=== PATIENT | female | born 1965 | race Caucasian/White ===

== ENCOUNTER 2018-08-05 08:59 | Day surgery (SDC) | payer OTHER ==
[2018-07-30 13:36] LABS: Absolute Lymphocytes (CBC) 1.6 K/uL (0.7-4.9); Absolute Monocytes 0.4 K/uL (0.1-1.3); Absolute Neutrophil 3.4 K/uL (1.8-8.0); Basophils % 0.7 % (0-1.3); Eosinophils % 1.1 % (0-4.4); Lymphocytes % 28.6 % (15.3-44.8); MCH 23.1 pg (27.0-35.0); MCV 69.8 fL (80-100); MPV 7.8 fL (7.6-11.3); Monocytes % 7.4 % (3.3-12.3); RBC Red Blood Cell Count 4.15 M/uL (3.86-4.86)
[2018-07-30 13:54] LABS: Urine White Blood Cell Casts OK
[2018-07-30 13:55] LABS: Platelet Estimate INCR
[2018-07-30 13:56] LABS: Blood Morphology Comment NOT SEEN (NOT SEEN)
--- OUTSIDE RECORDS SUMMARY | 2018-08-05 09:02 | XMS REPORT | Continuity of Care Document ---
:1965 Author Organization Interface Problems Problem Status Onset Classification Date Comments Source Date Reported Generalized 01/04/2018 [facility] abdominal pain 8 Syncope 01/04/2018 [facility] 8 FAINTING, Active [facility] DIZZINESS 8 Ronald Syncope and 01/04/2018 [facility] collapse Medications Medication Details Route Status Patient Ordering Order Source Instructions Provider Date Dexamethasone 12 mg, 3 mL, Inactive Route: IVP, 2017 [place] Drug form: INJ, ONCE, Dosing Weight 55, kg, Priority: STAT, Start date: 09/27/17 20:06:00 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, Stop date: 09/27/17 20:06:00 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 Diphenhydramine 25 mg, 0.5 Inactive mL, Route: 2017 [place] IVP, Drug form: INJ, ONCE, Dosing Weight 55, kg, Priority: STAT, Start date: 09/27/17 20:06:00 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, Stop date: 09/27/17 20:06:00 CSTNotes: (Same as: Benadryl) Zofran 4 mg, 2 mL, Inactive Route: IVP, 2017 [place] Drug form: INJ, ONCE, Dosing Weight 55, kg, Priority: STAT, Start date: 09/27/17 19:52:00 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, Stop date: 09/27/17 19:52:00 CSTNotes: (Same as: Zofran) MEDICATION WASTE Product Size: 4 mg Product Wasted: ___ mg Sodium Chloride 1,000 mL, Inactive 0.9% (Bolus) IV 1000 ml/hr, 2017 [place] Infuse Over: 1 hr, Route: IV, 1,000, Drug form: INJ, ONCE, Priority: STAT, Dosing Weight 55 kg, Start date: 09/27/17 16:18:00 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, Stop date: 09/27/17 16:18:00 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 Saline Flush 0.9% 10 mL, No Longer Route: IVP, Active 2017 [place] Drug Form: INJ, kg, PRN, PRN Line Flush, Start date: 09/27/17 16:15:00 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, Duration: 30 day, Stop date: 10/27/17 16:14:00 CSTNotes: (Same as: BD Posiflush) Allergies, Adverse Reactions, Alerts Substance Category Reaction Severity Reaction Status Date Comments Source type Reported iodine Assertion Drug Active allergy [place] Immunizations Immunization Date Given Site Status Last Updated Comments Source Results Order Name Results Value Reference Date Interpretation Comments Source Range BLOOD BANK ABO/Rh O NEG 09/27 RESULTS [place] BLOOD BANK Antibody Negative 09/27 RESULTS [facility] [place] (09/27/17 4:44 PM) CHEM PANEL Lipase Lvl 188 unit/L 73 - 393 09/27 [place] CHEM PANEL B/C Ratio 14 6 - 25 09/27 [place] CHEM PANEL Globulin 4.6 g/dL 2.7 - 4.2 09/27 [place] CHEM PANEL A/G Ratio 0.8 0.7 - 1.6 09/27 [place] CHEM PANEL AGAP 9.2 meq/L 10.0 - 09/27 [facility] 20.0 [place] CHEM PANEL eGFR 102 09/27 Result Comment: The eGFR is calculated using the CKD-EPI formula. In most young, healthy individuals the eGFR will be >90 mL/ min/1.73m2. The eGFR declines with age. An eGFR of 60-89 may be normal in mL/min/1.7 some populations, particularly the elderly, for whom the CKD-EPI formula has not been extensively validated. Use of the eGFR is not recommended in the following populations: [place] 3m2 Individuals with unstable creatinine concentrations, including patients and those with serious co-morbid conditions. Patients with extremes in muscle mass or diet. The data above are obtained from the National Kidney Disease Education Program (NKDEP) which additionally recommends that when the eGFR is used in patients with extremes of body mass index for purposes of drug dosing, the eGFR should be multiplied by the estimated BMI. CHEM PANEL Glucose Lvl 96 mg/dL 70 - 99 09/27 [place] CHEM PANEL CO2 34 meq/L 24 - 32 09/27 [place] CHEM PANEL Chloride Lvl 102 meq/L 95 - 109 09/27 [place] CHEM PANEL Potassium 3.2 meq/L 3.5 - 5.1 09/27 MH Lvl [place] CHEM PANEL Sodium Lvl 142 meq/L 135 - 145 09/27 [place] CHEM PANEL Creatinine 0.63 mg/dL 0.50 - 09/27 MH Lvl 1.40 [place] CHEM PANEL BUN 9 mg/dL 7 - 22 09/27 [place] CHEM PANEL Albumin Lvl 3.8 g/dL 3.5 - 5.0 09/27 [place] CHEM PANEL Total 8.4 g/dL 6.4 - 8.4 09/27 [place] CHEM PANEL Alk Phos 89 unit/L 39 - 136 09/27 [place] CHEM PANEL Calcium Lvl 8.7 mg/dL 8.5 - 10.5 09/27 [place] CHEM PANEL ALT 14 unit/L 0 - 65 09/27 [place] CHEM PANEL AST 10 unit/L 0 - 37 09/27 [place] CHEM PANEL Bili Total 0.3 mg/dL 0.2 - 1.3 09/27 [place] HEMATOLOGY Eosinophils 0.9 % 0.0 - 4.0 09/27 [place] HEMATOLOGY Lymphocytes 33.6 % 20.0 - 09/27 MH 40.0 [place] HEMATOLOGY Monocytes 5.7 % 2.0 - 12.0 09/27 [place] HEMATOLOGY Plt Morph Normal 09/27 [place] (09/27/17 4:44 PM) HEMATOLOGY Segs 59.2 % 45.0 - 09/27 MH 75.0 [place] HEMATOLOGY Basophils 0.6 % 0.0 - 1.0 09/27 [place] HEMATOLOGY Monocytes # 0.2 K/CMM 0.0 - 0.8 09/27 [place] HEMATOLOGY Segs-Bands # 2.5 K/CMM 1.5 - 8.1 09/27 [place] HEMATOLOGY Lymphocytes 1.4 K/CMM 1.0 - 5.5 09/27 MH [place] HEMATOLOGY Microcyte 3+ None Seen 09/27 [place] *NA* (09/27/17 4:44 PM) HEMATOLOGY Anisocyte 1+ None Seen 09/27 [place] *ABN* (09/27/17 4:44 PM) HEMATOLOGY MPV 7.2 fL 7.4 - 10.4 09/27 [place] HEMATOLOGY Platelet 287 K/CMM 133 - 450 09/27 [place] HEMATOLOGY RDW 15.9 % 11.5 - 09/27 MH 14.5 [place] HEMATOLOGY MCH 22.5 pg 27.0 - 09/27 MH 31.0 [place] HEMATOLOGY Hct 32.4 % 36.0 - 09/27 MH 48.0 [place] HEMATOLOGY MCV 68.7 fL 80.0 - 09/27 98.0 [place] HEMATOLOGY MCHC 32.7 g/dL 32.0 - 09/27 36.0 [place] HEMATOLOGY WBC 4.2 K/CMM 3.7 - 10.4 09/27 [place] HEMATOLOGY RBC 4.72 M/CMM 4.20 - 09/27 MH 5.40 /2017 [place] HEMATOLOGY Hgb 10.6 g/dL 12.0 - 09/27 16.0 [place] URINE AND UA 2.0 mg/dL 0.1 - 1.0 09/27 [facility] Urobilinogen /2017 [place] URINE AND UA Blood Negative Negative 09/27 [facility] [place] (09/27/17 4:31 PM) URINE AND UA Ketones Trace Negative 09/27 [facility] mg/dL mg/dL [place] URINE AND UA Bili Negative Negative 09/27 [facility] [place] *NA* (09/27/17 4:31 PM) URINE AND UA Glucose Negative Negative 09/27 [facility] mg/dL mg/dL [place] URINE AND UA WBC 1 /HPF 0 - 5 09/27 [facility] [place] URINE AND UA RBC 3 /HPF 0 - 2 09/27 [facility] [place] URINE AND UA Sq Epi Moderate Few /LPF 09/27 [facility] /LPF /2017 [place] URINE AND UA Leuk Est Negative Negative 09/27 [facility] [place] (09/27/17 4:31 PM) URINE AND UA Nitrite Negative Negative 09/27 [facility] [place] (09/27/17 4:31 PM) URINE AND UA Hyal Cast 3 /LPF 0 - 2 09/27 [facility] [place] URINE AND UA Bacteria Occasional None Seen 09/27 [facility] /HPF /HPF [place] URINE AND UA Mucus Many /LPF None Seen 09/27 [facility] /LPF [place] URINE AND UA pH 5.0 5.0 - 8.0 09/27 [facility] [place] URINE AND UA Protein Negative Negative 09/27 [facility] mg/dL mg/dL [place] URINE AND UA Spec Grav 1.024 <=1.030 09/27 [facility] [place] URINE AND UA Turbidity Slight Clear 09/27 [facility]OOL [place] *ABN* (09/27/17 4:31 PM) URINE AND UA Color Yellow Yellow 09/27 [facility]OOL [place] *NA* (09/27/17 4:31 PM) URINE CHEM U Preg Negative Negative 09/27 [place] (09/27/17 4:31 PM) ED ED CT SCAN OF THE ABDOMEN AND PELVIS WITH CONTRAST. 09/27 - [facility] Abdomen/Pel Abdomen/Pelv /2017 - [place] vis IV is IV HX: Clinical Indication: - abdominal pain, vomiting, weight loss, cre-0.63, gfr-102, qclx664/95cc, dlp-268.02mgy-cm; . contrast contrast only CT only CT Comparison: None Read by: Shan Ashley MD Dictated Date/time: 09/27/17 22:09 Electronically Signed by: Shan Ashley MD 09/27/17 22:13 FINAL REPORT Technique: Helical CT images were obtained from the domes the diaphragms to the symphysis pubis following the administration of intravenous and p.o. contrast. ABDOMEN AND PELVIS: The lung bases are clear. The heart is normal in size. Postoperative cholecystectomy. The liver, spleen, pancreas, and adrenals are normal in appearance. The kidneys show good, symmetrical, excretion without hydronephrosis. Postoperative LAP-BAND procedure is present. Abundance of stool within the colon. Mild sigmoid descending diverticulosis. Heterogeneous likely fibroid uterus. Fluid or thickened endometrium with submuco alpa fibroids and/or polyps. The bladder is nondistended. IMPRESSION: 1. No acute abdominal or pelvic process detected. 2. Postoperative cholecystectomy and LAP-BAND procedure are present. 3. Constipation. Mild sigmoid descending diverticulosis. 4. Heterogeneous likely fibroid uterus. Fluid or thickened endometrium with submucosal fibroids and/or polyps. SL: [id number] Pelvis Pelvis Patient Name: OLINDA SERRANO 09/27 - [facility] Transvag w Transvag - [place] Pelvis Pelvis : 1965; Age: 52 years Female Doppler US Doppler US MR: [id number] Read by: Dayo Gar MD Dictated Date/time: 09/27/17 19:30 Study: Pelvis Transvag w Pelvis Doppler US 09/27/2017 4:15 PM 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 Electronically Signed by: Dayo Gar MD 09/27/17 19 :33 FINAL REPORT CLINICAL INDICATION: - Vaginal bleeding/clotting. ADDITIONAL HISTORY: None COMPARISON: None TECHNIQUE: Grayscale, Doppler, and color sonographic evaluation of the pelvis was performed using standard technique. Both transabdominal and transvaginal technique were utilized. FINDINGS: Transabdominal: The uterus measures 10.2 x 5.7 x 6.4 cm and demonstrates normal echogenicity. Transvaginal: The endometrial stripe measures 1.6 cm. Hypoechoic 1.5 cm intramural fibroid within the anterior body. Hypoechoic 2.4 cm intramural fibroid within the posterior body. The right ovary measures 2.4 x 1 x 1.2 cm and the left ovary measures 2.7 x 2.1 x 2.4 cm. The ovaries demonstrate normal size and echogenicity. Doppler imaging demonstrates adequate flow to the ovaries. No evidence of free pelvic fluid. IMPRESSION: Thickened endometrial stripe (1.6 cm). If patient is postmenopausal, this may indicate endometrial hyperplasia, polyp, or possibly carcinoma. If patient is pre or perimenopausal, this may be related to secretory phase of menstruation. Two small uterine fibroids. SL: CHRISTIANO Chest 1view Chest 1view Clinical indication: - Weight loss//Feeling weak \T \ losing weight for 4 to 7 months. Was worked up for this last Apr in [place]. Lower abd pain off \T\ on x 1 month 09/27 - [facility] DX DX - [place] Comparison: None. Read by: Kiera Sanchez MD Dictated Date/time: 09/27/17 16:35 TECHNIQUE: AP chest Electronically Signed by: Kiera Sanchez MD 09/27/17 16:36 FINAL REPORT FINDINGS: Lines, tubes, and hardware: A lap band device is seen in the left upper quadrant. Lungs and pleura: The lungs are clear. No appreciable pleural effusion or pneumothorax. Heart and mediastinum: The cardiomediastinal silhouette is within normal limits. Bones: No acute bony abnormality is identified. IMPRESSION: No acute cardiopulmonary abnormality. SL: [id number] Vital Signs Vital Sign Value Date Comments Source Temperature Oral (F) 97.5 F 09/28/2017 [facility] Respitory Rate 18 09/28/2017 [facility] Heart Rate 85 09/28/2017 [facility] Systolic (mm Hg) 129 09/28/2017 [facility] Diastolic (mm Hg) 74 09/28/2017 [facility] Heart Rate 80 09/28/2017 [facility] Respitory Rate 18 09/28/2017 [facility] Systolic (mm Hg) 128 09/28/2017 [facility] Diastolic (mm Hg) 74 09/28/2017 [facility] Height 167.64 cm 09/27/2017 [facility] Weight 55 09/27/2017 [facility] BMI Calculated 19.57 09/27/2017 [facility] Temperature Oral (F) 97.6 F 09/27/2017 [facility] Respitory Rate 18 09/27/2017 [facility] Heart Rate 72 09/27/2017 [facility] Systolic (mm Hg) 132 09/27/2017 [facility] Diastolic (mm Hg) 80 09/27/2017 [facility] Encounters Location Location Encounter Encounter Reason Attending ADM DC Status Source Details Type Number For Provider Date Date [facility] [id number] [place] 09/27 09/28 Ronald Hays /2017 [facility] Procedures Procedure Code Date Perfomer Comments Source
[2018-08-05 09:26] LABS: Specific Gravity 1.025 (1.005-1.030)
[2018-08-05] MEDS ORDERED: Ringers Lactate 1,000 ML IV ONE ×2 (09:44→11:38)
[2018-08-05] MEDS ORDERED: SULFANILAMIDE 15% VAG CREAM VAG ONE (09:45)
[2018-08-05] MEDS ORDERED: VASOPRESSIN 20 UNIT/ML VIAL ONE (09:46)
[2018-08-05] MEDS ORDERED: NA CHLORIDE 0.9% 50 ML ONE (09:46)
[2018-08-05] MEDS ORDERED: CEFAZOLIN/SWI 1gm 1 GM/10 ML SYR ONE (09:52)
[2018-08-05] MEDS ORDERED: PROPOFOL 200 MG/20 ML VIAL IV ONE (09:57)
[2018-08-05] MEDS ORDERED: FENTANYL CITR 100 MCG/2 ML ONE (09:57)
[2018-08-05] MEDS ORDERED: LIDOCAINE 1% MPF 5 ML VIAL ONE (09:57)
[2018-08-05] MEDS ORDERED: MIDAZOLAM HCL 2 MG/2 ML INJ ONE (09:57)
[2018-08-05] MEDS ORDERED: ROCURONIUM 50 MG/5 ML VIAL IV ONE (09:57)
[2018-08-05] MEDS ORDERED: FENTANYL CITR 250 MCG/5 ML ONE (10:52)
[2018-08-05] MEDS ORDERED: METOCLOPRAMIDE 10 MG/2mL INJ ONE (11:09)
[2018-08-05] MEDS ORDERED: ONDANSETRON HCL 40 MG/20 ML VIAL ONE ×2 (11:35→11:45)
[2018-08-05] MEDS ORDERED: GLYCOPYRROLATE 0.2 MG/ML SYR ONE (11:44)
[2018-08-05] MEDS ORDERED: KETOROLAC 30 MG/ML INJ ONE (11:44)
[2018-08-05] MEDS ORDERED: NEOSTIGMINE 1 MG/ML -5 ML SYRINGE ONE (12:19)
[2018-08-05] MEDS ORDERED: Oxycodone HCl/Acetaminophen 1 TAB TAB PO PRN (12:34)
[2018-08-05] MEDS ORDERED: ONDANSETRON 4 MG (ODT) TAB PO PRN (12:34)
[2018-08-05] MEDS ORDERED: KETOROLAC 30 MG/ML INJ IV PRN (12:34)
[2018-08-05] MEDS ORDERED: IBUPROFEN 400 MG TAB PO PRN (12:34)
--- NOTE | 2018-08-05 12:36 | P.OP ---
Supervisor Policy Change Clerks: Jo Ann Garay Preoperative diagnosis: Abnormal uterine bleeding Postoperative diagnosis: same Primary procedure: Vaginal hysterectomy Anesthesia: General Estimated blood loss: 100cc Specimen: Uterus and Cervix Operative Technique: After induction of anesthesia, the patient was placed in stirrups and then prepped and draped in the usual sterile manner. Bladder was drained. A weighted speculum was placed in the vagina with the patient in acute flexion at the hips and a single-tooth tenaculum was used to grasp the cervix in an anterior to posterior direction. The mucosa over the cervix was then injected with vasopressin and the cervix was scored in a circumferential manner. The mucosa was then dissected from the cervix bluntly until a thin layer of tissue remained. The anterior peritoneum was entered. The posterior mucosa was grasped creating a taught line of peritoneum between the mucosa and the cervix. The peritoneum was entered with Metzenbaum scissors. A long weighted speculum replaced the short-billed speculum.The uterosacrals were then clamped, cut and suture-ligated with 0-Vicryl sutures in a Laly fashion. The suture string was held on either side for use in cuff closure later. The cardinal ligaments were then clamped, cut and suture-ligated with 0-Vicryl sutures in a Laly fashion and also held. The uterine vessels were then clamped, cut and suture-ligated with 0-Vicryl sutures in a Laly fashion. Finally the remainder of the broad ligament, tubes and round ligament were clamped, cut and suture-ligated with 0- Vicryl sutures. The peritoneum was closed using a 2-0 Vicryl pursestring suture. The corresponding tagged suture ties were then ligated across the midline used to close the cuff anterior to posterior by threading a free needle and using it to suture the mucosa. Each set of sutures was tied together using one strand from each side in an anterior to posterior fashion until they were used and the cuff was approximated with excellent hemostasis.The patient tolerated the procedure well, all sponge, lap and needle counts were correct times two. The patient was taken to the recovery room in stable condition. Complications: None Transferred to: Recovery Room Condition: Good
[2018-08-05] MEDS: MEPERIDINE HCL 50 MG/ML AMP ONE ×2 (12:50→12:59)
[2018-08-05] MEDS ORDERED: PROMETHAZINE 25 MG/ML VIAL ONE (13:24)
[2018-08-05] MEDS ORDERED: Oxycodone HCl/Acetaminophen 1 TAB TAB ONE (14:01)
[2018-08-05] MEDS ORDERED: IBUPROFEN 200 MG TAB PO ONE (15:08)
[2018-08-05] MEDS ORDERED: IBUPROFEN 400 MG TAB ONE (15:08)
== END 2018-08-05 15:20 | disposition home or self-care (01) ==
LOC: OR 08:59
PROVIDERS: ATTEND Student in an Organized Health Care Education/Training Program
PROC: 0UT97ZZ Resection of Uterus, Via Natural or Artificial Opening (ICD-10-PCS; principal; 2018-08-05 10:30)
DX: N93.9 Abnormal uterine and vaginal bleeding, unspecified (principal); D25.9 Leiomyoma of uterus, unspecified; N84.0 Polyp of corpus uteri; N80.0 Endometriosis of uterus; Z90.49 Acquired absence of other specified parts of digestive tract; Z80.1 Family history of malignant neoplasm of trachea, bronchus and lung; Z83.3 Family history of diabetes mellitus; Z82.49 Family history of ischemic heart disease and other diseases of the circulatory system
CPT/HCPCS: 36415; 81025; 85025; 86850; 86900; 86901; 88307; J0690; J2175; J2250; J2405; J2550; J2704; J2710; J2765; J3010

== ENCOUNTER 2019-05-12 11:12 | Emergency (ER) | payer OTHER ==
--- OUTSIDE RECORDS SUMMARY | 2019-05-12 11:15 | XMS REPORT ---
:1965 Author [facility] Address [address] [place] [address] [address] [place] [address] Care Team Providers Name Role Phone Unavailable Unavailable Unavailable Problems This patient has no known problems. Allergies, Adverse Reactions, Alerts This patient has no known allergies or adverse reactions. Medications This patient has no known medications.
--- OUTSIDE RECORDS SUMMARY | 2019-05-12 11:15 | XMS REPORT | Continuity of Care Document ---
:1965 Author Organization [facility] [employer] [facility] Care Team Providers Name Role Phone [facility] [employer] [facility] Unavailable Unavailable Problems Problem Status Onset Classification Date Comments Source Date Reported Generalized 01/04/2018 [facility] abdominal pain 8 FAINTING, Active [facility] DIZZINESS 8 Ronald Syncope and 01/04/2018 [facility] collapse Medications Medication Details Route Status Patient Ordering Order Source Instructions Provider Date Dexamethasone 12 mg, 3 mL, Inactive Route: IVP, 2017 [place] Drug form: INJ, ONCE, Dosing Weight 55, kg, Priority: STAT, Start date: 09/27/17 20:06:00 [employer], Stop date: 09/27/17 20:06:00 [employer] Diphenhydramine 25 mg, 0.5 Inactive mL, Route: 2018 [place] IVP, Drug form: INJ, ONCE, Dosing Weight 55, kg, Priority: STAT, Start date: 09/27/17 20:06:00 [employer]PA[employer], Stop date: 09/27/17 20:06:00 CSTNotes: (Same as: Benadryl) Zofran 4 mg, 2 mL, Inactive Route: IVP, [address] [place] [id number] Drug form: INJ, ONCE, Dosing Weight 55, kg, Priority: STAT, Start date: 09/27/17 19:52:00 [employer] REPA[employer], Stop date: 09/27/17 19:52:00 CSTNotes: (Same as: Zofran) MEDICATION WASTE Product Size: 4 mg Product Wasted: ___ mg Sodium Chloride 1,000 mL, Inactive 0.9% (Bolus) IV 1000 ml/hr, 2017 [place] Infuse Over: 1 hr, Route: IV, 1,000, Drug form: INJ, ONCE, Priority: STAT, Dosing Weight 55 kg, Start date: 09/27/17 16:18:00 [employer]PA[employer]ER, Stop date: 09/27/17 16:18:00 [employer]PAIR [employer]ER Saline Flush 0.9% 10 mL, No Longer Route: IVP, Active 2017 [place] Drug Form: INJ, kg, PRN, PRN Line Flush, Start date: 09/27/17 16:15:00 [employer]RON[employer]PAIR [employer]ER, Duration: 30 day, Stop date: 10/27/17 16:14:00 CSTNotes: (Same as: BD Posiflush) Allergies, Adverse Reactions, Alerts Substance Category Reaction Severity Reaction Status Date Comments Source type Reported iodine Assertion Drug Active allergy [place] Immunizations No Data Provided for This Section Results Order Name Results Value Reference Date Interpretation Comments Source Range BLOOD BANK ABO/Rh O NEG 09/27 RESULTS /2017 [place] BLOOD BANK Antibody Negative 09/27 RESULTS Scrn (09/27/17 4:44 PM) [place] CHEM PANEL Lipase Lvl 188 73 - 393 09/27 [place] CHEM PANEL B/C Ratio 14 6 - 25 09/27 [place] CHEM PANEL Globulin 4.6 2.7 - 4.2 09/27 [place] CHEM PANEL A/G Ratio 0.8 0.7 - 1.6 09/27 [place] CHEM PANEL AGAP 9.2 10.0 - 09/27 MH 20.0 [place] CHEM PANEL eGFR 102 09/27 Result Comment: The [place] eGFR is calculated using the CKD-EPI formula. In most young, healthy individuals the eGFR will be >90 mL/min/1.73m2 . The eGFR declines with age. An eGFR of 60-89 may be normal in some populations, particularly the elderly, for whom the CKD-EPI formula has not been extensively validated. Use of the eGFR is not recommended in the following populations:< br/>
Concepcion viduals with unstable creatinine concentration s, including patients and those with serious co-morbid conditions.<b r/>
Patie nts with extremes in muscle mass or diet.

The data above are obtained from the National Kidney Disease Education Program (NKDEP) which additionally recommends that when the eGFR is used in patients with extremes of body mass index for purposes of drug dosing, the eGFR should be multiplied by the estimated BMI. CHEM PANEL Glucose Lvl 96 70 - 99 09/27 [place] CHEM PANEL CO2 34 24 - 32 09/27 [place] CHEM PANEL Chloride Lvl 102 95 - 109 09/27 [place] CHEM PANEL Potassium 3.2 3.5 - 5.1 09/27 MH Lvl /2017 [place] CHEM PANEL Sodium Lvl 142 135 - 145 09/27 [place] CHEM PANEL Creatinine 0.63 0.50 - 09/27 MH Lvl 1.40 [place] CHEM PANEL BUN 9 7 - 22 09/27 [place] CHEM PANEL Albumin Lvl 3.8 3.5 - 5.0 09/27 [place] CHEM PANEL Total 8.4 6.4 - 8.4 09/27 [place] CHEM PANEL Alk Phos 89 39 - 136 09/27 [place] CHEM PANEL Calcium Lvl 8.7 8.5 - 10.5 09/27 [place] CHEM PANEL ALT 14 0 - 65 09/27 [place] CHEM PANEL AST 10 0 - 37 09/27 [place] CHEM PANEL Bili Total 0.3 0.2 - 1.3 09/27 [place] HEMATOLOGY Eosinophils 0.9 0.0 - 4.0 09/27 [place] HEMATOLOGY Lymphocytes 33.6 20.0 - 09/27 MH 40.0 [place] HEMATOLOGY Monocytes 5.7 2.0 - 12.0 09/27 [place] HEMATOLOGY Plt Morph Normal 09/27 (09/27/17 4:44 PM) [place] HEMATOLOGY Segs 59.2 45.0 - 09/27 MH 75.0 [place] HEMATOLOGY Basophils 0.6 0.0 - 1.0 09/27 [place] HEMATOLOGY Monocytes # 0.2 0.0 - 0.8 09/27 [place] HEMATOLOGY Segs-Bands # 2.5 1.5 - 8.1 09/27 [place] HEMATOLOGY Lymphocytes 1.4 1.0 - 5.5 09/27 MH # /2017 [place] HEMATOLOGY Microcyte 3+ None Seen 09/27 MH *NA* /2017 [place] (09/27/17 4:44 PM) HEMATOLOGY Anisocyte 1+ None Seen 09/27 *ABN* /2017 [place] (09/27/17 4:44 PM) HEMATOLOGY MPV 7.2 7.4 - 10.4 09/27 [place] HEMATOLOGY Platelet 287 133 - 450 09/27 [place] HEMATOLOGY RDW 15.9 11.5 - 09/27 MH 14.5 /2017 [place] HEMATOLOGY MCH 22.5 27.0 - 09/27 MH 31.0 [place] HEMATOLOGY Hct 32.4 36.0 - 09/27 MH 48.0 /2017 [place] HEMATOLOGY MCV 68.7 80.0 - 09/27 MH 98.0 [place] HEMATOLOGY MCHC 32.7 32.0 - 09/27 MH 36.0 [place] HEMATOLOGY WBC 4.2 3.7 - 10.4 09/27 [place] HEMATOLOGY RBC 4.72 4.20 - 09/27 MH 5.40 /2017 [place] HEMATOLOGY Hgb 10.6 12.0 - 09/27 MH 16.0 [place] URINE AND UA 2.0 0.1 - 1.0 09/27 [facility] Urobilinogen /2017 [place] URINE AND UA Blood Negative Negative 09/27 [facility] (09/27/17 4:31 PM) [place] URINE AND UA Ketones Trace Negative 09/27 [facility] mg/dL mg/dL [place] URINE AND UA Bili Negative Negative 09/27 [facility] *NA* /2017 [place] (09/27/17 4:31 PM) URINE AND UA Glucose Negative Negative 09/27 [facility] mg/dL mg/dL [place] URINE AND UA WBC 1 0 - 5 09/27 [facility] [place] URINE AND UA RBC 3 0 - 2 09/27 [facility] [place] URINE AND UA Sq Epi Moderate Few /LPF 09/27 [facility] /LPF [place] URINE AND UA Leuk Est Negative Negative 09/27 [facility] (09/27/17 4:31 PM) [place] URINE AND UA Nitrite Negative Negative 09/27 [facility] (09/27/17 4:31 PM) [place] URINE AND UA Hyal Cast 3 0 - 2 09/27 [facility] [place] URINE AND UA Bacteria Occasional None Seen 09/27 [facility] /HPF /HPF [place] URINE AND UA Mucus Many /LPF None Seen 09/27 [facility] /LPF [place] URINE AND UA pH 5.0 5.0 - 8.0 09/27 [facility] /2018 [place] URINE AND UA Protein Negative Negative 09/27 [facility] mg/dL mg/dL [place] URINE AND UA Spec Grav 1.024 <=1.030 09/27 [facility] [place] URINE AND UA Turbidity Slight Clear 09/27 [facility] *ABN* [place] (09/27/17 4:31 PM) URINE AND UA Color Yellow Yellow 09/27 [facility] *NA* [place] (09/27/17 4:31 PM) URINE CHEM U Preg Negative Negative 09/27 (09/27/17 4:31 PM) [place] Pathology Reports No Data Provided for This Section Diagnostic Reports Report Value Date Source ED Abdomen/Pelvis IV CT SCAN OF THE ABDOMEN AND PELVIS WITH CONTRAST. 2017 [facility] contrast only CT HX: Clinical Indication: - abdominal pain, vomiting, weight loss, cre-0.63, gfr-102, [id number]/95cc, dlp-268.02mgy-cm; . Comparison: None Technique: Helical CT images were obtained from [...] submucosal fibroids and/or polyps. SL: [id number] Pelvis Transvag w Patient Name: OLINDA SERRANO 09/27/2017 [facility] Pelvis Doppler US : 1965; Age: 52 years Female MR: [id number] Study: Pelvis Transvag w Pelvis Doppler US 09/27/2017 4:15 PM [employer]RON[employer]PA[employer] CLINICAL INDICATION: - Vaginal bleeding/clotting. ADDITIONAL HISTORY: [...] small uterine fibroids. SL: CHRISTIANO Chest 1view DX Clinical indication: - Weight loss//Feeling weak \T\ losing weight for 4 to 7 months. Was worked up for this last Apr in [place]. Lower abd pain off \T\ on x 1 month 09/27/2017 [facility] Comparison: None. TECHNIQUE: AP chest FINDINGS: Lines, tubes, and hardware: A lap band device is seen in the left upper quadrant. Lungs and pleura: The lungs are clear. No appreciable pleural effusion or pneumothorax. Heart and mediastinum: The cardiomediastinal silhouette is within normal limits. Bones: No acute bony abnormality is identified. IMPRESSION: No acute cardiopulmonary abnormality. SL: [id number] Consultation Notes No Data Provided for This Section Discharge Summaries No Data Provided for This Section History and Physicals No Data Provided for This Section Vital Signs Vital Sign Value Date Comments Source Temperature Oral (F) 97.5 F 09/28/2017 [facility] Respitory Rate 18 09/28/2017 [facility] Heart Rate 85 09/28/2017 [facility] Systolic (mm Hg) 129 09/28/2017 [facility] Diastolic (mm Hg) 74 09/28/2017 [facility] Heart Rate 80 09/28/2017 [facility] Respitory Rate 18 09/28/2017 [facility] Systolic (mm Hg) 128 09/28/2017 [facility] Diastolic (mm Hg) 74 09/28/2017 [facility] Height 167.64 cm 09/27/2017 [facility] Weight 55 09/27/2017 [facility] BMI Calculated 19.57 09/27/2017 [facility] Temperature Oral (F) 97.6 F 09/27/2017 [facility] Respitory Rate 18 09/27/2017 [facility] Heart Rate 72 09/27/2017 [facility] Systolic (mm Hg) 132 09/27/2017 [facility] Diastolic (mm Hg) 80 09/27/2017 [facility] Encounters Location Location Encounter Encounter Reason Attending ADM DC Status Source Details Type Number For Provider Date Date [facility] [id number] [facility] 09/27 09/28 Ronald Vasquezmar /2017 [facility] Procedures No Data Provided for This Section Assessment and Plan No Data Provided for This Section Plan of Care No Data Provided for This Section Social History Social History Date Source Social History TypeResponse 09/28/2017 [facility] Smoking Status Never smoker; Previous treatment: None; Ready to change: No; Concerns about tobacco use in household: No; Exposure to Tobacco Smoke None; Cigarette Smoking Last 365 Days No; Reg Smoking Cessation Counseling No entered on: 09/27/17 Family History No Data Provided for This Section Advance Directives No Data Provided for This Section Functional Status No Data Provided for This Section
[2019-05-12] MEDS ORDERED: ONDANSETRON 4 MG/2 ML VIAL ONE (12:40)
[2019-05-12] MEDS ORDERED: CLINDAMYCIN 900MG/D5W 900 MG/50 ML IVPB IV ONE (12:40)
[2019-05-12] MEDS ORDERED: KETOROLAC 30 MG/ML INJ ONE (12:40)
[2019-05-12] MEDS ORDERED: NA CHLORIDE 0.9% 1,000 ML ONE (12:40)
[2019-05-12 12:43] LABS: Basophils % 0.3 % (0-1.3); Hematocrit 34.6 % (36.0-45.0); Lymphocytes % 12.2 % (15.3-44.8); MPV 7.7 fL (7.6-11.3); RBC Red Blood Cell Count 4.68 M/uL (3.86-4.86)
[2019-05-12 12:58] LABS: Albumin 3.6 g/dL (3.4-5.0); Bilirubin Total 0.8 mg/dL (0.2-1.0); Potassium 3.8 mmol/L (3.5-5.1); Protein, Total 7.5 g/dL (6.4-8.2)
--- NOTE | 2019-05-12 13:33 | RAD REPORT ---
EXAM DESCRIPTION: CT - Soft Tissue Neck W/Contr - 05/12/2019 1:21 pm CLINICAL HISTORY: Left-sided facial and neck pain and swelling TECHNIQUE: During dynamic enhancement using 100 milliliters nonionic IV contrast, axial 5 millimeter thick images of the neck were obtained. All CT scans are performed using dose optimization technique as appropriate and may include automated exposure control or mA/KV adjustment according to patient size. FINDINGS: Intracranial portion the examination is unremarkable. Mastoid air cells and middle ears ar e clear. No sinus abnormality. No globe or orbital content abnormality. Pharyngeal mucosa is unremark able. No tonsillar or tongue base abnormality. Epiglottis, soft palate and larynx also without suspic ious finding. Patient has congested or edematous subcutaneous fatty tissues in the left-side of the face and neck. This is the only minimally extending deep to the platysma. Small reactive lymph nodes are noted on th e left. No abscess, air or foreign body in the soft tissues. Submandibular and parotid gland show no suspicious findings. IMPRESSION: Edematous and/or inflammatory stranding in the left-sided facial and neck soft tissues. No abscess, air or foreign body in the soft tissues. Small reactive lymph nodes on the left side of the neck.
[2019-05-12] MEDS ORDERED: dexAMETHasone 10 MG/ML VIAL ONE (14:06)
[2019-05-12] MEDS ORDERED: CEFTRIAXONE/SWI 1gm 1 GM/10 ML SYR ONE (14:06)
--- NOTE | 2019-05-12 14:25 | ER ---
Nurse's Notes [facility] Name: Domonique Bennett Age: 53 yrs Sex: Female : 1965 Arrival Date: 05/12/2019 Time: 11:14 Bed 27 Private MD: Diagnosis: Cellulitis and acute lymphangitis of face;Dental procedure status;Dental caries Presentation: 05/12 11:15 Presenting complaint: Patient states: left sided facial and necking swelling started on sv Sunday after going snorkeling (did not use her own equipment). Reports drooling yesterday but none today. Transition of care: patient was not received from another setting of care. Onset of symptoms was May 10, 2019. Care prior to arrival: None. 11:15 Method Of Arrival: Ambulatory sv 11:15 Acuity: DENILSON 3 sv 12:04 Initial Sepsis Screen: Does the patient have a suspected source of infection?. rv 15:22 Risk Assessment: Do you want to hurt yourself or someone else? Patient reports no rv desire to harm self or others. Initial Sepsis Screen: Does the patient meet any 2 criteria? No. Patient's initial sepsis screen is negative. Triage Assessment: 11:15 General: Appears in no apparent distress. uncomfortable, well developed, Behavior is sv calm, cooperative, appropriate for age. EENT: Denies drooling today. Neuro: Level of Consciousness is awake, alert, obeys commands, Oriented to person, place, time, situation, Moves all extremities. Full function. Respiratory: Respiratory effort is even, unlabored, Respiratory pattern is regular, symmetrical. Derm: Skin is pink, warm \T\ dry. Musculoskeletal: Swelling present in left zygomatic area, left cheek, left mandible and left anterior aspect of neck. Historical: - Allergies: 11:19 No Known Allergies; sv - PMHx: 11:19 None; sv - PSHx: 11:19 Hysterectomy; SBO; left foot; right knee; Cholecystectomy; lap band; sv - Immunization history:: Adult Immunizations up to date. - Social history:: Smoking status: Patient/guardian denies using tobacco. - Ebola Screening: : No symptoms or risks identified at this time. Screenin:04 Abuse screen: Denies threats or abuse. Denies injuries from another. Nutritional rv screening: No deficits noted. Tuberculosis screening: No symptoms or risk factors identified. Fall Risk None identified. Assessment: 12:03 General: Appears in no apparent distress. comfortable, Behavior is calm, cooperative. rv Pain: Complains of pain in left anterior aspect of neck and left mandible and left cheek. Neuro: Level of Consciousness is awake, alert, obeys commands, Oriented to person, place, time, situation. Cardiovascular: Patient's skin is warm and dry. Respiratory: Airway is patent. GI: No signs and/or symptoms were reported involving the gastrointestinal system. : No signs and/or symptoms were reported regarding the genitourinary system. EENT: No signs and/or symptoms were reported regarding the EENT system. Derm: Skin is intact. Musculoskeletal: No signs and/or symptoms reported regarding the musculoskeletal system. Vital Signs: 11:19 BP 111 / 79; Pulse 84; Resp 16; Pulse Ox 100% ; Weight 72.57 kg; Height 5 ft. 6 in. sv (167.64 cm); 12:30 BP 118 / 81; Pulse 86; Resp 15; Pulse Ox 100% on R/A; rv 13:30 BP 109 / 76; Pulse 77; Resp 16; Pulse Ox 98% on R/A; rv 14:30 BP 115 / 78; Pulse 79; Resp 16; Pulse Ox 99% on R/A; rv 11:19 Body Mass Index 25.82 (72.57 kg, 167.64 cm) sv ED Course: 11:14 Patient arrived in ED. as 11:18 Triage completed. sv 11:19 Arm band placed on. sv 11:49 Brayan Jean, JUAN DIEGO is Primary Nurse. rv 11:59 Jean Claude Garcia MD is Attending Physician. hemant 12:04 Patient has correct armband on for positive identification. Bed in low position. Call rv light in reach. Side rails up X 1. Pulse ox on. NIBP on. 12:39 Inserted saline lock: 20 gauge in right antecubital area, using aseptic technique. rv Blood collected. 13:22 CT Soft Tissue Neck W/contr In Process Unspecified. EDMS 14:17 Horacio Hutson DDS is Referral Physician. hemant 15:22 No provider procedures requiring assistance completed. IV discontinued, intact, rv bleeding controlled, No redness/swelling at site. Pressure dressing applied. Administered Medications: 13:00 Drug: NS 0.9% 1000 ml Route: IV; Rate: 1 bolus; Site: right antecubital; rv 15:18 Follow up: IV Status: Completed infusion; IV Intake: 1000ml rv 13:00 Drug: TORadol 30 mg Route: IVP; Site: right antecubital; rv 15:19 Follow up: Response: No adverse reaction rv 13:00 Drug: Zofran 4 mg Route: IVP; Site: right antecubital; rv 15:19 Follow up: Response: No adverse reaction rv 13:39 Drug: Clindamycin 900 mg Route: IVPB; Infused Over: 30 mins; Site: right antecubital; rv 15:18 Follow up: IV Status: Completed infusion; IV Intake: 50ml rv 15:00 Drug: Rocephin 1 grams Route: IV; Rate: per protocol; Site: right antecubital; rv 15:19 Follow up: IV Status: Completed infusion rv 15:00 Drug: Decadron - Dexamethasone 10 mg Route: IVP; Site: right antecubital; rv 15:19 Follow up: Response: No adverse reaction rv 15:00 Drug: Clindamycin 300 mg Route: PO; rv 15:19 Follow up: Response: No adverse reaction rv Intake: 15:18 IV: 1000ml; Total: 1000ml. rv 15:18 IV: 50ml; Total: 1050ml. rv Outcome: 14:18 Discharge ordered by . hemant 15:22 Discharged to home ambulatory, with family. rv 15:22 Condition: good 15:22 Discharge instructions given to patient, family, Instructed on discharge instructions, follow up and referral plans. medication usage, Demonstrated understanding of instructions, follow-up care, medications, Prescriptions given X 2. 15:23 Patient left the ED. rv Signatures: Dispatcher [employer] EDMS Ximena Ojeda RN RN sv Anderson, Corey, MD MD cha Martinez, Amelia as Vicente, Ronaldo, RN RN rv Corrections: (The following items were deleted from the chart) 11:19 11:15 Presenting complaint: Patient states: left sided facial and necking swelling sv started on Sunday after going snorkeling (did not use her own equipment) sv
--- NOTE | 2019-05-12 14:26 | EDPHYS ---
Physician Documentation [facility] Name: Domonique Bennett Age: 53 yrs Sex: Female : 1965 Arrival Date: 05/12/2019 Time: 11:14 Bed 27 Private MD: DULCE Physician Jean Claude Garcia HPI: 05/12 12:08 This 53 yrs old Female presents to ER via Ambulatory with complaints of hemant Facial Swelling. 12:08 The patient or guardian reports pain, swelling. The complaints affect the left cheek, hemant left jaw and left mandible. Context of injury: The problem was sustained at home. Onset: The symptoms/episode began/occurred 3 day(s) ago. Associated signs and symptoms: The patient has no apparent associated signs or symptoms. Historical: - Allergies: : No Known Allergies; sv - PMHx: : None; sv - PSHx: :19 Hysterectomy; SBO; left foot; right knee; Cholecystectomy; lap band; sv - Immunization history:: Adult Immunizations up to date. - Social history:: Smoking status: Patient/guardian denies using tobacco. - Ebola Screening: : No symptoms or risks identified at this time. ROS: 12:09 Constitutional: Negative for fever, chills, and weight loss, Eyes: Negative for injury, hemant pain, redness, and discharge, ENT: Negative for injury, pain, and discharge, Neck: Negative for injury, pain, and swelling, Cardiovascular: Negative for chest pain, palpitations, and edema, Respiratory: Negative for shortness of breath, cough, wheezing, and pleuritic chest pain, Abdomen/GI: Negative for abdominal pain, nausea, vomiting, diarrhea, and constipation, Back: Negative for injury and pain, : Negative for injury, bleeding, discharge, and swelling, MS/Extremity: Negative for injury and deformity, Neuro: Negative for headache, weakness, numbness, tingling, and seizure, Psych: Negative for depression, anxiety, suicide ideation, homicidal ideation, and hallucinations, Allergy/Immunology: Negative for hives, rash, and allergies, Endocrine: Negative for neck swelling, polydipsia, polyuria, polyphagia, and marked weight changes, Hematologic/Lymphatic: Negative for swollen nodes, abnormal bleeding, and unusual bruising. 12:09 Skin: Positive for swelling. Exam: 12:09 Constitutional: This is a well developed, well nourished patient who is awake, alert, hemant and in no acute distress. Eyes: Pupils equal round and reactive to light, extra-ocular motions intact. Lids and lashes normal. Conjunctiva and sclera are non-icteric and not injected. Cornea within normal limits. Periorbital areas with no swelling, redness, or edema. ENT: Nares patent. No nasal discharge, no septal abnormalities noted. Tympanic membranes are normal and external auditory canals are clear. Oropharynx with no redness, swelling, or masses, exudates, or evidence of obstruction, uvula midline. Mucous membranes moist. Neck: Trachea midline, no thyromegaly or masses palpated, and no cervical lymphadenopathy. Supple, full range of motion without nuchal rigidity, or vertebral point tenderness. No Meningismus. Chest/axilla: Normal chest wall appearance and motion. Nontender with no deformity. No lesions are appreciated. Cardiovascular: Regular rate and rhythm with a normal S1 and S2. No gallops, murmurs, or rubs. Normal PMI, no JVD. No pulse deficits. Respiratory: Lungs have equal breath sounds bilaterally, clear to auscultation and percussion. No rales, rhonchi or wheezes noted. No increased work of breathing, no retractions or nasal flaring. Abdomen/GI: Soft, non-tender, with normal bowel sounds. No distension or tympany. No guarding or rebound. No evidence of tenderness throughout. Back: No spinal tenderness. No costovertebral tenderness. Full range of motion. Skin: Warm, dry with normal turgor. Normal color with no rashes, no lesions, and no evidence of cellulitis. MS/ Extremity: Pulses equal, no cyanosis. Neurovascular intact. Full, normal range of motion. Neuro: Awake and alert, GCS 15, oriented to person, place, time, and situation. Cranial nerves II-XII grossly intact. Motor strength 5/5 in all extremities. Sensory grossly intact. Cerebellar exam normal. Normal gait. Psych: Awake, alert, with orientation to person, place and time. Behavior, mood, and affect are within normal limits. 12:09 Head/face: Noted is swelling, tenderness, that is moderate, of the left ear, left cheek, left jaw, left zygomatic area and left mandible. Vital Signs: 11:19 BP 111 / 79; Pulse 84; Resp 16; Pulse Ox 100% ; Weight 72.57 kg; Height 5 ft. 6 in. sv (167.64 cm); 12:30 BP 118 / 81; Pulse 86; Resp 15; Pulse Ox 100% on R/A; rv 13:30 BP 109 / 76; Pulse 77; Resp 16; Pulse Ox 98% on R/A; rv 14:30 BP 115 / 78; Pulse 79; Resp 16; Pulse Ox 99% on R/A; rv 11:19 Body Mass Index 25.82 (72.57 kg, 167.64 cm) sv MDM: 11:59 Patient medically screened. [facility] 12:10 Data reviewed: vital signs, nurses notes, lab test result(s), radiologic studies, CT hemant scan. 05/12 12:07 Order name: CBC with Diff; Complete Time: 13:17 [facility] 05/12 12:07 Order name: Comprehensive Metabolic Panel; Complete Time: 13:17 [facility] 05/12 12:07 Order name: CT Soft Tissue Neck W/contr; Complete Time: 14:12 [facility] Administered Medications: 13:00 Drug: NS 0.9% 1000 ml Route: IV; Rate: 1 bolus; Site: right antecubital; rv 15:18 Follow up: IV Status: Completed infusion; IV Intake: 1000ml rv 13:00 Drug: TORadol 30 mg Route: IVP; Site: right antecubital; rv 15:19 Follow up: Response: No adverse reaction rv 13:00 Drug: Zofran 4 mg Route: IVP; Site: right antecubital; rv 15:19 Follow up: Response: No adverse reaction rv 13:39 Drug: Clindamycin 900 mg Route: IVPB; Infused Over: 30 mins; Site: right antecubital; rv 15:18 Follow up: IV Status: Completed infusion; IV Intake: 50ml rv 15:00 Drug: Rocephin 1 grams Route: IV; Rate: per protocol; Site: right antecubital; rv 15:19 Follow up: IV Status: Completed infusion rv 15:00 Drug: Decadron - Dexamethasone 10 mg Route: IVP; Site: right antecubital; rv 15:19 Follow up: Response: No adverse reaction rv 15:00 Drug: Clindamycin 300 mg Route: PO; rv 15:19 Follow up: Response: No adverse reaction rv Disposition: 05/12/19 14:18 Discharged to Home. Impression: Cellulitis and acute lymphangitis of face, Dental procedure status, Dental caries. - Condition is Stable. - Discharge Instructions: Cellulitis, Adult, Dental Pain, Cellulitis, Adult, [id number], Dental Pain, [id number]. - Prescriptions for Clindamycin HCl 300 mg Oral Capsule - take 1 capsule by ORAL route every 6 hours for 10 days; 40 capsule. Tylenol- Codeine #3 300-30 mg Oral Tablet - take 2 tablets by ORAL route every 6 hours As needed; 24 tablet. - Medication Reconciliation Form, Thank You Letter, Antibiotic Education, Prescription Opioid Use form. - Follow up: Private Physician; When: 2 - 3 days; Reason: Recheck today's complaints, Continuance of care, Re-evaluation by your physician. Follow up: Horacio Hutson DDS; When: 2 - 3 days; Reason: Recheck today's complaints, Continuance of care, Re-evaluation by your physician. - Problem is new. - Symptoms have improved. Signatures: Dispatcher [employer] Ximena Pritchett, RN RN Jean Claude Turcios MD MD cha Vicente, Ronaldo, RN RN rv Corrections: (The following items were deleted from the chart) 15:23 14:18 05/12/2019 14:18 Discharged to Home. Impression: Cellulitis and acute rv lymphangitis of face; Dental procedure status; Dental caries. Condition is Stable. Forms are Medication Reconciliation Form, Thank You Letter, Antibiotic Education, Prescription Opioid Use. Follow up: Private Physician; When: 2 - 3 days; Reason: Recheck today's complaints, Continuance of care, Re-evaluation by your physician. Follow up: Horacio Hutson; When: 2 - 3 days; Reason: Recheck today's complaints, Continuance of care, Re-evaluation by your physician. Problem is new. Symptoms have improved. hemant
== END 2019-05-12 15:23 | disposition home or self-care (01) ==
LOC: ER 11:12
DX: L03.211 Cellulitis of face (principal); L03.212 Acute lymphangitis of face; K02.9 Dental caries, unspecified; Z98.818 Other dental procedure status
CPT/HCPCS: 96365; 96361; 96368; 85025; 36415; 80053; 70491; 96375; 99284; J1100; J0696; J7030; J2405